=== PATIENT | male | born 1965 | race Caucasian/White ===

== ENCOUNTER 2023-01-24 20:19 | Emergency (ER) | payer MEDICAID, MEDICARE ==
[~2023-01-24] VITALS: Ht 188 cm; Wt 80.0 kg
[2023-01-24 20:35] VITALS: BP 123/79; PULSE 61; RESP 18; TEMP 98.7; O2SAT 100
[2023-01-24] MEDS ORDERED: IBUP-1986 PO (20:41)
[2023-01-24] MEDS ORDERED: ibuprofen tablet 400 MG TABLET PO ONE (20:45)
== END 2023-01-24 21:02 | disposition home or self-care (01) ==
LOC: ER 20:20
DX: M79.671 Pain in right foot (principal); M79.672 Pain in left foot; Z79.1 Long term (current) use of non-steroidal anti-inflammatories (NSAID)
CPT/HCPCS: 99282